=== PATIENT | male | born 1990 | race African-American/Black ===

== ENCOUNTER 2017-03-19 03:01 | Emergency (ER) | payer OTHER ==
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
[~2017-03-19 03:01] MED LIST: AZITHROMYCIN250 MG PO; FLEXERIL10 M1 PO; FLEXERIL10 MG PO; IBUPROFEN600 MG PO; IBUPROFEN800 MG PO; NAPROSYN500 MG PO; ORUDIS75 M1 PO
== END 2017-03-19 05:24 | disposition home or self-care (01) ==
LOC: CED 03:01
DX: S93.401A Sprain of unspecified ligament of right ankle, initial encounter (principal); S83.91XA Sprain of unspecified site of right knee, initial encounter; F17.210 Nicotine dependence, cigarettes, uncomplicated; Z79.899 Other long term (current) drug therapy; W22.8XXA Striking against or struck by other objects, initial encounter; Y92.410 Unspecified street and highway as the place of occurrence of the external cause
CPT/HCPCS: 29530; 29540; 73562; 73610; 96372; 99284; J1885